=== PATIENT | female | born 1970 | race Hispanic/Latino ===

== ENCOUNTER → 2018-07-01 | Outpatient (CLI) | payer OTHER | LOC: MAMMO 08:12 | PROVIDERS: ATTEND Internal Medicine | DX: Z12.31 Encounter for screening mammogram for malignant neoplasm of breast (principal) | CPT/HCPCS: 77067 ==

== ENCOUNTER 2020-09-25 00:42 | Emergency (ER) | payer OTHER ==
[~2020-09-25] VITALS: Ht 157.5 cm; Wt 88.5 kg
--- NOTE | 2020-09-25 01:28 | Emergency Department Note ---
History of Present Illnes History of Present Illness Chief Complaint: Extremity Trauma/Pain History of Present Illness This is a 50 year old female, with no significant past medical history, who presents for evaluation of pain in her ankles and feet, worse with weightbearing and ambulation. Patient states that she received her flu shot approximately 2 weeks ago, and 6 days ago she developed pain in her left shoulder. She was seen at [facility] ER in [place], and treated with prednisone, tramadol, and Motrin. Patient comes in tonight because she developed severe pain in her bilateral ankles and feet, while working. She has had no swelling or redness of the joints, no fever, chills, nausea, or vomiting. She also denies any trauma to the feet or ankles. She denies any history of previous similar pain. Historian: Patient Arrival Mode: Car Clinical Quality Assurance Specialist Required: No Onset (how long ago): day(s) Location: pain in ankles and feet Quality: aching, throbbing Radiation: Denies non-radiation, Denies back, Denies neck Severity: moderate Onset quality: sudden Duration (how long): day(s) (1) Timing of current episode: constant Progression: unchanged Chronicity: new Context: Reports new medications (pt received a Flu shot @ 10-14 days ago); Denies trauma/injury Relieving factors: none Exacerbating factors: none Associated symptoms: Reports denies other symptoms; Denies chest pain, Denies cough, Denies fever/chills, Denies headaches, Denies malaise, Denies nausea/vomiting, Denies shortness of breath Treatments prior to arrival: other (Took Motrin and Tramadol @ 1 hour [employer], and it has helped relieve the pain, to some degree.) Past Medical/Family History Physician Review I have reviewed the patient's past medical and family history. Any updates have been documented here. Past Medical History Recent Fever: No Clinical Suspicion of Infectio: No New/Unexplained Change in Ment: No Past Medical History: None Past Surgical History: Hysterectomy Other Surgery: Social History Smoking Cessation: Never Smoker Alcohol Use: None Any Illegal Drug Use: No TB Exposure/Symptoms: No Physically hurt or threatened: No Family History Family history of heart diseas: No Other Any Pre-Existing Lines (PICC,: No Is patient up to date on immun: Yes Review of Systems Review of Systems Constitutional: Denies chills, Denies fever EENTM: Reports no symptoms Cardiovascular: Denies chest pain, Denies palpitations Respiratory: Denies cough, Denies dyspnea Gastrointestinal: Denies nausea, Denies vomiting Genitourinary: Reports no symptoms Musculoskeletal: Reports muscle pain (RUE); Denies back pain, Denies joint pain (ankles and feet), Denies joint swelling, Denies neck pain Integumentary: Denies change in color, Denies rash Neurological: Denies headache, Denies paresthesia Psychological: Reports no symptoms Hematological/Lymphatic: Reports no symptoms Review of other systems: All other systems negative Physical Exam Related Data Allergies: Coded Allergies: No Known Allergies (Unverified , 01/23/14) Vital signs reviewed: Yes Physical Exam CONSTITUTIONAL Constitutional: Present well-developed, Present well-nourished; Absent obese, Absent distressed, Absent ill appearing HENT HENT: Present normocephalic, Present atraumatic, Present oropharynx clear/moist, Present nose normal; Absent nasal congestion, Absent rhinorrhea HENT L/R: Present left ext ear normal, Present right ext ear normal EYES Eyes: Reports PERRL, Reports conjunctivae normal NECK Neck: Present ROM normal, Present supple; Absent cervical adenopathy PULMONARY Pulmonary: Present effort normal, Present breath sounds normal CARDIOVASCULAR Cardiovascular: Present regular rhythm, Present heart sounds normal, Present capillary refill normal, Present normal rate; Absent murmur GASTROINTESTINAL GENITOURINARY Genitourinary: Present exam deferred SKIN Skin: Present warm, Present dry MUSCULOSKELETAL Musculoskeletal: Present ROM normal, Present other (No ttp of bilateral ankles or feet, no crepitus on rotation of ankle, no erythema or edema; ); Absent edema, Absent tenderness, Absent swelling NEUROLOGICAL Neurological: Present alert, Present oriented x 3, Present no gross motor or sensory deficits, Present abnormal gait (appears to have difficulty walking due to pain in ankles and feet;); Absent cranial nerve deficit, Absent abnormal coordination PSYCHOLOGICAL Psychological: Present mood/affect normal, Present thought content normal Assessment & Plan Medical Decision Making MDM - Patient seems to be having some polyarthralgias, that could have been triggered by an immune response from receiving the flu shot. Her symptoms seem to be temporally related to receiving the flu shot. - Explained the rationale for using a longer course of steroids, along with Motrin as tolerated, along with the tramadol. - Rest over the weekend, limiting time standing on your feet. - Keep the feet elevated above the level of the heart as much as possible. - Take medications as prescribed. You may continue the Motrin and Tramadol, as needed for pain. The Tylenol #3 may be taken for pain that is unrelieved by the Tramadol. - Alternate ice and heat to the areas of pain. - Follow-up with Dr. Maguire for further evaluation of your symptoms, and a possible referral to a Imaging Center Manager, if your symptoms persist.- Assessment & Plan Final Impression: (1) Polyarthralgia (2) Bilateral ankle pain (3) Foot pain, bilateral Depart Disposition: HOME, SELF-custodial Meds Active Scripts Acetaminophen/Codeine* (TYLENOL # 3*) 1 Ea Tab, 1-2 TAB PO Q6H PRN for pain, #20 TAB 0 Refills Do NOt take and drive or operate machinery. Prov:GUIDO HERNANDEZ MD 09/25/20 Prednisone (PREDNISONE) 20 Mg Tab, 50 MG PO DAILY for inflammation of joints for 7 Days, #7 TAB 0 Refills Prov:GUIDO HERNANDEZ MD 09/25/20 Discontinued Scripts Acetaminophen/Codeine* (TYLENOL # 3*) 1 Ea Tab, 1-2 TAB PO Q6H PRN for pain, #20 TAB 0 Refills Do NOT take and drive or operate machinery. Prov:GUIDO HERNANDEZ MD 09/25/20 Prednisone (PREDNISONE) 20 Mg Tab, 50 MG PO DAILY for inflammation for 7 Days, #7 TAB 0 Refills Prov:GUIDO HERNANDEZ MD 09/25/20 GUIDO HERNANDEZ MD Sep 25, 2020 01:28
[2020-09-25] MEDS ORDERED: HYDROCODONE/APAP 5MG-325MG TAB PO ONE (01:45)
[2020-09-25] MEDS ORDERED: PREDNISONE 20 MG TAB PO SCH (01:45)
[2020-09-25] MEDS ORDERED: PREDNISONE20 MG PO ×2 (01:54→02:10)
[2020-09-25] MEDS ORDERED: TYLENOL # 31 EA PO ×2 (01:55→02:14)
[2020-09-25] MEDS ORDERED: HYDROCODONE/APAP 5MG-325MG TAB ONE (02:02)
[2020-09-25] MEDS ORDERED: PREDNISONE 20 MG TAB ONE (02:02)
--- OUTSIDE RECORDS SUMMARY | 2020-09-25 02:23 | XMS REPORT | Continuity of Care Document ---
Author Author [facility] t Organization [facility] Address [address] [place] [address] Phone Unavailable Care Team Providers [employer] Salesperson Name Role Phone NARCISO GANN Unavailable Payers Payer Name Policy Type Policy Number Effective Date Expiration Date S ource Problems This patient has no known problems. Allergies, Adverse Reactions, Alerts Allergy Name Allergy Type Status Severity Reaction(s) Onset Date Inacti ve Date Treating Clinician Comments Source No Known Allergies DA Active U 2020-09-20 00:00:00 [facility] No Known Allergies DA Active U 2016-07-31 00:00:00 [facility] Medications This patient has no known medications. Procedures This patient has no known procedures. Results Test Description Test Time Test Comments Results Result Comments Source - XR SHOULDER 2 + V LT 2020-09-20 23:46:00 [facility]Name: MALKA WHALEN : 1970 Sex: F Name: MALKA WHALEN [facility] : 1970 Age/S:50 /F [address] [facility] Unit#:[id number] Loc: [place] [address] Phys: Mal Rivas MD Dis Date: PHONE #: [phone] Status: REG ER FAX #: [phone] Exam Date: 09/20/2020 Reason: Pain EXAMS: CPT CODE: [id number] XR SHOULDER 2 + [place] [address] - XR SHOULDER 2 + V LT, 09/20/2020 11:22 PM Reason For Examination: Pain Comparison: None available Location: R16: Findings: No evidence of acute fracture or dislocation. No radiopaque foreign body. Impression: No plain film evidence of acute fracture or dislocation at 2346 Reported and signed by: Hermila Rodas M.D. CC: Mal Rivsa MD; Norberto Suarez Technologist: BENJAMIN SPENCE RT(R),CT Trnscrpt Data: 09/20/2020 (2346) [email or web address] Orig Print D/T: S: 09/20/2020 (8322) PAGE 1 Signed Report MAMMOGRAPHY DIGITAL SCR BILAT 2018-07-01 08:56:00 [place] [address] Patient Name: MALKA WHALEN MR #: [id number] : 1970 Age/Sex: 48/F Req #: [id number] Adm Physician: Ordered by: NARCISO GANN MD Report #: [id number] Location: [facility] Room/Bed: Procedure: [id number] MG/MAMMOGRAPHY DIGITAL SCR BILAT Exam Date: 07/01/18 Exam Time: 0830 REPORT STATUS: Signed #[id number] - [id number] #BILATERAL DIGITAL SCREENING MAMMOGRAM WITH CAD: 07/01/2018 CLINICAL: Routine screening. Comparison is made to exam dated: 05/15/2016 mammogram - [facility]. Current study contains 4 films. There are scattered fibroglandular elements in both breasts. Current study was also evaluated with a Computer Aided Detection (CAD) system. There is a benign calc ification in both breasts. There also are benign lymph nodes in both breasts. No significant masses, calcifications, or other findings are seen in either breast. There has been no significant interval change. IMPRESSION: BENIGN There is no mammographic evidence of malignancy. A 1 year screening mammogram is recommended. The patient will be notified by letter of the results. Thiago thurman/farheen:07/08/2018 07:57:45 Prime Broker: Radha Rush RT(R)(M), [facility] letter sent: Compared to Prior B9 Mammogram BI- RADS: 2 Benign Dictated By: THIAGO GILMORE DO 717 Transcribed By: FARHEEN on 07/08/18756 COPY TO: NARCISO GANN MD
== END 2020-09-25 02:30 | disposition home or self-care (01) ==
LOC: FSED 01:30
DX: M25.572 Pain in left ankle and joints of left foot (principal); M25.571 Pain in right ankle and joints of right foot; M25.59 Pain in other specified joint
CPT/HCPCS: 99283; J7512

== ENCOUNTER → 2020-09-28 | Outpatient (CLI) | payer OTHER ==
[~2020-09-28] MED LIST: PREDNISONE20 MG PO; TYLENOL # 31 EA PO
--- NOTE | 2020-09-28 13:20 | Diagnostic Imaging Report ---
Radiographs of the right and left hand 3 views each hand HISTORY: Pain COMPARISON: None available. FINDINGS: Bones: No acute displaced fracture. Chronic appearing deformity of the left ulnar styloid. Osseous alignment is within normal limits. Joints: Scattered degenerative change. No osseous erosion. Soft tissues: The soft tissues appear unremarkable. IMPRESSION: Scattered degenerative change. No osseous erosion. Signed by: Dr. Sonny Wills M.D. on 09/28/2020 1:16 PM
== END ==
LOC: RAD 11:18
PROVIDERS: ATTEND Internal Medicine
DX: M79.642 Pain in left hand (principal); M79.641 Pain in right hand

== ENCOUNTER → 2020-10-06 | Outpatient (CLI) | payer OTHER ==
--- NOTE | 2020-10-06 10:05 | Diagnostic Imaging Report ---
EXAM: Bone density study HISTORY: Osteoporosis Comparison: 08/08/2018 History: [employer]. Glossary: The BMD = bone mineral density T score = standard deviation from young adult population Z score = standard deviation from age adjusted population FINDINGS: LUMBAR SPINE: BMD: 1.075 gm/cm2 T score: 0.3 Z score: 1.1 Previously: BMD not applicable and T score not applicable. WHO classification: Normal Left FEMORAL NECK: BMD: 1.024 gm/cm2 T score: 0.5 Z score: 1.0 Previously: BMD not applicable and T score not applicable. WHO classification: Normal IMPRESSION: As above. DIAGNOSTIC CRITERIA: Normal: BMD < 1 SD from young adult population. Osteopenia: BMD <1 to < 2.5 SD. Corresponds to a 1 - 2x increased risk of an osteoporotic fracture of the lumbar spine as compared to the young adult population. Osteoporosis: BMD > 2.5 SD corresponds to a 2x increased risk of an osteoporotic fracture of the lumbar spine as compared to the young adult population. Severe osteoporosis: Osteoporosis + one or more fragility fractures Signed by: Elias Cary MD on 10/06/2020 10:02 AM
== END ==
LOC: MAMMO 08:31
PROVIDERS: ATTEND Internal Medicine
DX: Z12.31 Encounter for screening mammogram for malignant neoplasm of breast (principal); M89.9 Disorder of bone, unspecified
CPT/HCPCS: 77067; 77080